=== PATIENT | male | born 1985 | race Two or more races ===

== ENCOUNTER → 2016-07-06 | Outpatient (REF) | payer OTHER ==
[2016-07-06 13:29] LABS: #IMMOTILE SPERM COUNTED 0; #MOTILE SPERM COUNTED 0; % MOTILITY 0 (> 25%); TOTAL # SPERM COUNTED 0 M/ml
== END ==
LOC: M LAB REF 13:21
PROVIDERS: ATTEND Student in an Organized Health Care Education/Training Program
DX: N46.9 Male infertility, unspecified (principal)

== ENCOUNTER → 2016-08-31 | Outpatient (CLI) | payer OTHER | LOC: M SMT 11:24 | PROVIDERS: ATTEND Nurse Practitioner Women's Health | DX: N46.01 Organic azoospermia (principal) | CPT/HCPCS: 36415; 84402; 84403; G0463 ==

== ENCOUNTER → 2016-09-03 | Outpatient (REF) | payer OTHER ==
[2016-09-03 09:46] LABS: SPERM ABNORMAL FORMS WBC'S NOTED
[2016-09-03 09:49] LABS: #IMMOTILE SPERM COUNTED 0; #MOTILE SPERM COUNTED 0; % MOTILITY 0 (> 25%); TOTAL # SPERM COUNTED 0 M/ml
== END ==
LOC: M SMT 09:34
PROVIDERS: ATTEND Nurse Practitioner Women's Health
DX: N46.01 Organic azoospermia (principal)

== ENCOUNTER → 2016-09-09 | Outpatient (REF) | payer OTHER | LOC: M LAB REF 08:39 | PROVIDERS: ATTEND Nurse Practitioner Women's Health | DX: N46.9 Male infertility, unspecified (principal) ==

== ENCOUNTER → 2016-09-30 | Outpatient (CLI) | payer OTHER ==
[2016-09-30 09:15] LABS: ESTRADIOL 25.4 PG/ML (<39.8); FOLLICLE STIMULATING HORMONE 1.3 mIU/mL (1.4-18.1); LUTEINIZING HORMONE 3.8 mIU/mL (1.5-9.3); PROLACTIN 5.6 NG/ML (2.1-17.7)
[2016-10-02 00:07] LABS: SEX HORMONE BINDING GLOBULIN 30.7 nmol/L (16.5-55.9)
== END ==
LOC: M LAB 07:09
PROVIDERS: ATTEND Urology
DX: N46.01 Organic azoospermia (principal)